=== PATIENT | female | born 1990 | race African-American/Black ===

== ENCOUNTER 2017-04-22 10:44 | Emergency (ER) | payer BC ==
[~2017-04-22] VITALS: Ht 167.6 cm; Wt 57.1 kg
[2017-04-22 12:17] LABS: BASOPHIL % 0.2 % (0-2); PLATELET COUNT 203 x10^3mcL (130-400); RED CELL DISTRIBUTION WIDTH 12.6 % (11.5-14.5)
[2017-04-22 12:22] LABS: CARBON DIOXIDE 23.8 mmol/L (21-32); CHLORIDE SERUM 102 mmol/L (98-107); CREATININE SERUM 0.6 mg/dL (0.6-1.0); GFR1 > 60 mL/min; GLUCOSE SERUM 88 mg/dL (74-106); SODIUM SERUM 138 mmol/L (136-145)
[2017-04-22 15:15] VITALS: BP 121/87
== END 2017-04-22 15:15 | disposition home or self-care (01) ==
LOC: ED 10:44
PROVIDERS: Emergency Medicine
DX: O26.891 Other specified pregnancy related conditions, first trimester (principal); E86.0 Dehydration; E87.6 Hypokalemia; Z3A.01 Less than 8 weeks gestation of pregnancy
CPT/HCPCS: J2405; J7030; Q0092

== ENCOUNTER 2017-04-27 01:49 | Emergency (ER) | payer BC ==
[2017-04-27 02:51] LABS: BASOPHIL % 0.3 % (0-2); PLATELET COUNT 216 x10^3mcL (130-400); RED CELL DISTRIBUTION WIDTH 12.5 % (11.5-14.5)
[2017-04-27 03:03] LABS: ALBUMIN 4.1 g/dL (3.4-5.0); ALKALINE PHOSPHATASE 33 U/L (46-116); ALT/SGPT 17 U/L (14-59); AMYLASE 69 U/L (25-115); AST/SGOT 15 U/L (15-37); BILIRUBIN TOTAL 0.5 mg/dL (0.20-1.00); CALCIUM 9.1 mg/dL (8.5-10.1); CARBON DIOXIDE 22.8 mmol/L (21-32); CHLORIDE SERUM 101 mmol/L (98-107); CREATININE SERUM 0.6 mg/dL (0.6-1.0); GFR1 > 60 mL/min; GLUCOSE SERUM 89 mg/dL (74-106); LIPASE 116 IU/L (73-393); SODIUM SERUM 139 mmol/L (136-145); TOTAL PROTEIN, SERUM 7.5 g/dL (6.4-8.2)
[2017-04-27 03:04] LABS: POTASSIUM SERUM 2.9 mmol/L (3.5-5.1)
[2017-04-27 03:59] VITALS: BP 130/82
== END 2017-04-27 03:59 | disposition home or self-care (01) ==
LOC: ED 01:49
PROVIDERS: Emergency Medicine
DX: O21.0 Mild hyperemesis gravidarum (principal); Z3A.00 Weeks of gestation of pregnancy not specified
CPT/HCPCS: J2405; J7030

== ENCOUNTER 2020-04-10 11:09 | Emergency (ER) | payer OTHER, SELFPAY ==
[~2020-04-10] VITALS: Ht 167.6 cm; Wt 54.4 kg
[2020-04-10 15:33] VITALS: Ht 167.6 cm; Wt 54.4 kg
[2020-04-10 15:56] VITALS: BP 113/72
== END 2020-04-10 15:56 | disposition home or self-care (01) ==
LOC: ED 11:09
DX: R50.9 Fever, unspecified (principal); Z20.828 Contact with and (suspected) exposure to other viral communicable diseases
CPT/HCPCS: U0003-CS